=== PATIENT | female | born 1985 | race Two or more races ===

== ENCOUNTER 2016-09-29 22:18 | Emergency (ER) | payer MEDICAID ==
[2016-09-29 23:18] LABS: COLOR YELLOW; LEUKOCYTE ESTERASE,URINE 3+ (NEGATIVE); NITRITE,URINE NEGATIVE (NEGATIVE)
[2016-09-29 23:29] LABS: MUCUS TRACE /lpf (NONE-1+); RBC,URINE 50-182 /hpf (0-3); WBC,URINE 50-182 /hpf (0-3)
--- NOTE | 2016-09-29 23:33 | EDPHY ---
H & P Stated Complaint: pain with urination, lower abd pain, had baby 1 month ago HPI/ROS: HPI CHIEF COMPLAINT: Dysuria HISTORY OF PRESENT ILLNESS: this patient very pleasant 30-year-old female, she presents to the emergency room with urinary frequency and dysuria. She denies fever, vomiting, back pain. Denies abdominal pain. She tells me that this has been going on for approximately a month since she delivered her baby. However got worse over the last 3-4 days this why she presented to the ER. Past Medical History: No significant medical history Past Surgical History: Social History: Denies use of drugs alcohol tobacco products Family History: Noncontributory ROS REVIEW OF SYSTEMS: A comprehensive 10 point review of systems is otherwise negative aside from elements mentioned in the history of present illness. Exam Constitutional triage nursing summary reviewed, vital signs reviewed, awake/ alert. Eyes normal conjunctivae and sclera, EOMI, PERRLA. HENT normal inspection, atraumatic, moist mucus membranes, no epistaxis, neck supple/ no meningismus, no raccoon eyes. Respiratory clear to auscultation bilaterally, normal breath sounds, no respiratory distress, no wheezing. Cardiovascular rate normal, regular rhythm, no murmur, no edema, distal pulses normal. Gastrointestinal soft, non-tender, no rebound, no guarding, normal bowel sounds, no distension, no pulsatile mass. Genitourinary no CVA tenderness. Musculoskeletal no midline vertebral tenderness, full range of motion, no calf swelling, no tenderness of extremities, no meningismus, good pulses, neurovascularly intact. Skin pink, warm, & dry, no rash, skin atraumatic. Neurologic awake, alert and oriented x 3, AAOx3, moves all 4 extremities equally, motor intact, sensory intact, CN II-XII intact, normal cerebellar, normal vision, normal speech. Psychiatric normal mood/affect. Heme/Lymph/Immune no lymphadenopathy. Differential Diagnosis: Includes but is not limited to in a particular, UTI, cystitis, pyelonephritis Medical Decision Making: this patient's urinalysis indicates that she has a urinary tract infection I have sent a culture she has been given Keflex p. o. dose here and peridium. Prescription for Keflex and pretty home. She does understand to return to the emergency room she develops any worsening symptoms includes worsening abdominal pain, fever, vomiting or urinary symptoms. Back pain. She understands. She at this time she appears well nontoxic no acute distress resting comfortably. No fever here abdomen is benign, urinalysis reviewed. Source: Patient - Personal History LMP (Females 10-55): Over 28 Days Ago Current Tetanus/Diphtheria Vaccine: Yes Current Tetanus Diphtheria and Acellular Pertussis (TDAP): Yes - Medical/Surgical History Hx Asthma: No Hx Chronic Respiratory Disease: No Hx Diabetes: No Hx Cardiac Disease: No Hx Renal Disease: No Hx Cirrhosis: No Hx Alcoholism: No Hx HIV/AIDS: No Hx Splenectomy or Spleen Trauma: No Other PMH: 1 vaginal , one - Social History Smoking Status: Never smoked Constitutional: Initial Vital Signs Temperature (C) 37.0 C 09/29/16 22:30 Heart Rate 101 H 09/29/16 22:30 Respiratory Rate 18 09/29/16 22:30 Blood Pressure 134/91 H 09/29/16 22:30 O2 Sat (%) 95 09/29/16 22:30 O2 Delivery Mode Room Air Allergies/Adverse Reactions: No Known Allergies Allergy (Unverified 09/29/16 22:51) Home Medications: Medication Instructions Recorded Cephalexin [Keflex] 500 mg PO Q6H #28 cap 09/29/16 Colace 100 MG (*) 09/29/16 Phenazopyridine HCl [Pyridium] 200 mg PO TID #6 tab 09/29/16 09/29/16 Medical Decision Making - Data Points Laboratory Results: 09/29/16 22:40 Urine Color YELLOW Urine Appearance MODERATELY TURBID Urine pH 5.0 (5.0-7.5) Ur Specific [place] 1.018 (1.002-1.030) Urine Protein NEGATIVE (NEGATIVE) Urine Ketones NEGATIVE (NEGATIVE) Urine Blood 2+ H (NEGATIVE) Urine Nitrate NEGATIVE (NEGATIVE) Urine Bilirubin NEGATIVE (NEGATIVE) Urine Urobilinogen NEGATIVE EU (0.2-1.0) Ur Leukocyte Esterase 3+ H (NEGATIVE) Urine RBC 50-182 H /hpf (0-3) Urine WBC 50-182 H /hpf (0-3) Ur Epithelial Cells TRACE /lpf (NONE-1+) Urine Mucus TRACE /lpf (NONE-1+) Urine Glucose NEGATIVE (NEGATIVE) Departure - Departure Disposition: Home, Routine, Self-Care Clinical Impression: Urinary tract infection Qualifiers: Urinary tract infection type: acute cystitis Hematuria presence: with hematuria Qualifier Code: (N30.01) Acute cystitis with hematuria Condition: Good Instructions: Dysuria (ED), Urinary Tract Infection in Women (ED) Additional Instructions: 1. Drink lots of fluids. 2. return to the emergency room if develops worsening symptoms questions or concerns. 3. Take antibiotics as prescribed. Referrals: Nanda Patel MD [Primary Care Provider] - As per Instructions Prescriptions: Cephalexin [Keflex] 500 mg PO Q6H #28 cap Phenazopyridine HCl [Pyridium] 200 mg PO TID #6 tab
[2016-09-29] MEDS ORDERED: CEPHALEXIN 500MG PREPACK#4 BTL TAKEHOME ONE (23:34)
[2016-09-29] MEDS ORDERED: CEPHALEXIN 500 MG CAP PO ONE (23:34)
[2016-09-29] MEDS ORDERED: PHENAZOPYRIDINE HCL 200 MG TAB PO ONE (23:35)
[2016-09-30 00:09] VITALS: BP 130/78; PULSE 90; RESP 16; TEMP 98.4; O2SAT 97
== END 2016-09-30 00:07 | disposition home or self-care (01) ==
DX: N30.01 Acute cystitis with hematuria (principal); B95.61 Methicillin susceptible Staphylococcus aureus infection as the cause of diseases classified elsewhere